=== PATIENT | female | born 1950 | race Two or more races ===

== ENCOUNTER 2018-11-18 10:55 | Outpatient (CLI) | payer MEDICARE, BC | END 2018-11-18 23:59 | disposition home or self-care (01) | LOC: WOU 10:55 | PROVIDERS: ATTEND Podiatrist Foot & Ankle Surgery | DX: M79.671 Pain in right foot (principal); M20.21 Hallux rigidus, right foot; Z98.84 Bariatric surgery status; R60.0 Localized edema; Z98.890 Other specified postprocedural states | CPT/HCPCS: A6402; G0463 ==